=== PATIENT | female | born 1940 | race Caucasian/White ===

== ENCOUNTER → 2018-01-15 | Outpatient (CLI) | payer MEDICARE ==
[2015-11-26 11:00] VITALS: BP 152/6
[~2018-01-15] MED LIST: ASPI-252 PO; DOXA4TAB3 PO; EZET1TAB41 PO; GLYB5TAB3 PO; IOHEXOL 300 MG/ML 100ML VIAL. IV ONE; LISI1TAB7 PO; METF500T16 PO; METO100T7 PO; NIAC500C6 PO
--- NOTE | 2018-01-15 16:37 | KCIC ---
PQRS Compliance Statement: One or more of the following individualized dose reduction techniques were utilized for this examination: 1. Automated exposure control 2. Adjustment of the mA and/or kV according to patient size 3. Use of iterative reconstruction technique PQRS Compliance Statement: One or more of the following individualized dose reduction techniques were utilized for this examination: 1. Automated exposure control 2. Adjustment of the mA and/or kV according to patient size 3. Use of iterative reconstruction technique CTA neck with contrast 01/15/2018 9:00 AM INDICATION: Previous right carotid surgery. Carotid stenosis COMPARISON: Ultrasound November 25, 2015 carotid TECHNIQUE: Multiple axial CT images of the neck were obtained after the intravenous administration of 95 cc Omnipaque 300. Coronal and sagittal reformats are provided. Maximum intensity projection images of the cervical vasculature are provided. FINDINGS: Nonvascular findings: There are no suspicious enhancing intracranial lesions. Nasopharynx, oropharynx and hypopharynx appear normal. Glottic structures appear intact. Laryngeal cartilages are intact. Thyroid gland is normal in appearance. There are no pathologically enlarged cervical lymph nodes. Parotid glands and submandibular glands appear intact. [employer] space and parapharyngeal spaces appear intact. Mild centrilobular pulmonary emphysema is noted. Minimal anterolisthesis of C6 on C7. There is mild cervical spondylosis. Small bilateral pleural effusions, left greater than right. Vascular findings: Pulmonary arteries are patent. Thoracic aorta is normal in caliber. Moderate atherosclerotic changes are visualized. 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 There is moderate stenosis of the origin of the left common carotid artery measuring approximately 50 percent secondary to calcified and noncalcified atheromatous plaque. Left subclavian artery is widely patent. Moderate calcified plaque is noted. The mid and distal left common carotid artery is normal in caliber. There is calcified and noncalcified plaque at the left carotid bifurcation resulting in 50 percent stenosis of the proximal left internal carotid artery. There is mild stenosis of the origin the left external carotid artery. Right common carotid artery is normal in course and caliber with mild calcified and noncalcified atheromatous plaque. No significant stenosis is identified at the carotid bifurcation. There is mild ulcerated plaque immediately distal to the carotid bifurcation involving the proximal right internal carotid artery. Moderate calcification is noted involving the cavernous segments of internal carotid arteries without significant focal stenosis. Left vertebral artery is widely patent at its origin. Vertebral artery is normal in course and caliber with minor calcified plaque. Left vertebral artery is dominant. Right vertebral artery is diminutive in caliber, however patent from its origin. IMPRESSION: 1. Approximately 50 percent stenosis involving the proximal left internal carotid artery secondary to calcified and noncalcified atheromatous plaque. There is moderate stenosis of the origin of the left common carotid artery from the aortic arch. No significant stenosis of the proximal right internal carotid artery at the carotid bifurcation. 2. There is possibly 75 percent stenosis of the origin of the right innominate artery from the aortic arch secondary to calcified and noncalcified atheromatous plaque. 3. PQRS statement: Carotid stenosis calculations are performed utilizing NASCET Criteria. 4. Small bilateral pleural effusions, left greater than right. Mild centrilobular pulmonary emphysema. Electronically signed by: Kandace Gautam MD (01/15/2018 4:33 PM) [id number]
== END | disposition home or self-care (01) ==
LOC: KCIC CT 08:40
PROVIDERS: ATTEND Surgery
DX: I65.21 Occlusion and stenosis of right carotid artery (principal); J90 Pleural effusion, not elsewhere classified; J43.2 Centrilobular emphysema; I10 Essential (primary) hypertension; E11.9 Type 2 diabetes mellitus without complications; Z95.1 Presence of aortocoronary bypass graft; Z90.49 Acquired absence of other specified parts of digestive tract; Z88.0 Allergy status to penicillin; Z88.6 Allergy status to analgesic agent; Z82.49 Family history of ischemic heart disease and other diseases of the circulatory system
CPT/HCPCS: 70498; 82565; Q9967